=== PATIENT | female | born 1925 | race Asian ===

== ENCOUNTER 2017-01-06 23:04 | Emergency (ER) | payer MEDICARE, OTHER ==
[~2017-01-06] VITALS: Ht 160 cm; Wt 65.0 kg
[2017-01-06 23:04] VITALS: BP 193/93
[~2017-01-06 23:04] MED LIST: AMLO10TA2 PO; ASPI-515 PO; ATOR20TA9 PO; CALC-141 PO; CARV12.52 PO; CHOL100011 PO; FURO20TA3 PO; IRON1TAB60 PO; LOSA100T6 PO; METF10002 PO; PIOG30TA3 PO; SITA100T PO
[2017-01-06] MEDS ORDERED: LIDOCAINE 2%, 10ML INFIL ONE (23:30)
[2017-01-06] MEDS ORDERED: OXYMETAZOLINE NASAL SPRAY 0.05%, 15ML ONE (23:33)
[2017-01-06] MEDS ORDERED: LIDOCAINE-MPF 2% ,5ML ONE (23:33)
[2017-01-07] MEDS ORDERED: HYDROcodone/APAP 5/325 TABLET PO ONE
[2017-01-07] MEDS ORDERED: OXYMETAZOLINE NASAL SPRAY 0.05%, 15ML NAS ONE
[2017-01-07] MEDS ORDERED: HYDROcodone/APAP 5/325 TABLET ONE
== END 2017-01-07 01:27 | disposition home or self-care (01) ==
LOC: ED 23:59
DX: R04.0 Epistaxis (principal); I10 Essential (primary) hypertension; E11.9 Type 2 diabetes mellitus without complications; M19.90 Unspecified osteoarthritis, unspecified site
CPT/HCPCS: 30901; 99284; J3490

== ENCOUNTER 2017-01-10 14:58 | Emergency (ER) | payer MEDICARE ==
[~2017-01-10] VITALS: Ht 160 cm; Wt 65.7 kg
[2017-01-10 15:03] VITALS: BP 187/77
== END 2017-01-10 17:19 | disposition home or self-care (01) ==
LOC: ED 15:45
DX: R04.0 Epistaxis (principal); E11.9 Type 2 diabetes mellitus without complications; I10 Essential (primary) hypertension; E78.00 Pure hypercholesterolemia, unspecified; E78.5 Hyperlipidemia, unspecified; M19.90 Unspecified osteoarthritis, unspecified site; Z86.73 Personal history of transient ischemic attack (TIA), and cerebral infarction without residual deficits; Z95.1 Presence of aortocoronary bypass graft
CPT/HCPCS: 99281